=== PATIENT | male | born 1995 | race African-American/Black ===

== ENCOUNTER 2021-08-09 02:41 | Emergency (ER) | payer OTHER, SELFPAY ==
--- NOTE | 2021-08-09 03:13 | ED.ABDPAIN ---
HPI - Abdominal Pain General Chief Complaint: Nausea/Vomiting/Diarrhea Stated Complaint: vomiting x 3 and abd pain Time Seen by Provider: 08/09/21 03:03 Source: patient Mode of arrival: ambulatory Limitations: no limitations History of Present Illness HPI narrative: Patient is a 26-year-old male complaining of epigastric pain, burning, 6 out of 10, nonradiating accompanied by nausea that started 2 hours prior to arrival. Patient denies any chest pain, shortness of breath, vomiting, diarrhea, fever or chills. Related Data Allergies Allergy/AdvReac Type Severity Reaction Status Date / Time No Known Allergies Allergy Verified 08/09/21 02:49 Review of Systems Review of Systems: All systems reviewed & are unremarkable except as noted in HPI and below Constitutional: Constitutional: Denies body ache(s), Denies chills, Denies excessive sweating, Denies fatigue, Denies fever(s), Denies headache(s), Denies lethargy, Denies malaise, Denies weakness and Denies weight loss Eyes: Eyes: Denies blurry vision, Denies change in vision and Denies loss of vision ENT: Denies dizziness, Denies ear discharge, Denies headache(s), Denies lip swelling, Denies epistaxis, Denies nasal congestion, Denies neck pain, Denies throat swelling and Denies tongue swelling Cardiovascular: Cardiovascular: Denies chest pain, Denies chest pain at rest, Denies chest pain with activity, Denies diaphoresis, Denies rapid heart rate, Denies edema, Denies irregular heart rhythm, Denies lightheadedness, Denies palpitations, Denies dyspnea and Denies dyspnea on exertion Respiratory: Respiratory: Denies chest congestion, Denies cough, Denies hemoptysis, Denies dyspnea and Denies dyspnea on exertion Gastrointestinal: Gastrointestinal: Denies melena, Denies hematochezia, Denies diarrhea, Denies vomiting and Denies hematemesis Musculoskeletal: Musculoskeletal: Denies abnormal gait, Denies deformity, Denies joint swelling, Denies limited range of motion, Denies neck pain and Denies numbness Neurologic: Denies Abnormal speech present, Denies abnormal gait, Denies confusion, Denies dizziness, Denies headache(s), Denies focal weakness, Denies loss of vision, Denies numbness, Denies Other visual disturbances, Denies Sensory deficit (Neuro) and Denies weakness Psychiatric: Psychiatric: Denies confusion, Denies depression, Denies auditory hallucinations, Denies homicidal ideation and Denies suicidal ideation Endocrine: Endocrine: Denies cold intolerance, Denies excessive sweating, Denies fatigue, Denies heat intolerance and Denies palpitations Hematologic/Lymphatic: Hematologic/Lymphatic: Denies easy bleeding and Denies easy bruising Allergic/Immunologic: Allergic/Immunologic: Denies lip swelling, Denies throat swelling and Denies tongue swelling PMFSH Comments Past medical history: None Family history: None Social history: Non-smoker no EtOH or drug use Exam Const: General: cooperative, healthy appearing, comfortable, no acute distress, well developed, alert and awake; No confusion Orientation/consciousness: oriented to person, oriented to place, oriented to time, patient oriented x3 and No confusion Limitations: no limitations HENMT: Head: normal to inspection, normocephalic and atraumatic Ears: hearing grossly normal bilaterally, TM normal on the right and TM normal on the left General nose exam: Normal external nose present, Normal nares present and No nasal discharge present Face and sinus: normal facial exam Mouth: Yes Normal oral and palatal mucosa present, Yes lip normal, Yes tongue normal and Yes oropharynx normal Throat: posterior oropharynx normal, tonsils normal and uvula midline Eyes: General: appearance normal, both eyes and all related structures Pupils: Equal, round and reactive pupils present EOM: EOMs intact bilaterally Neck: Neck: normal visual inspection, full ROM, no lymphadenopathy and no meningeal signs Chest: Chest palpation & inspection: normal inspect
[2021-08-09] MEDS: FAMOTIDINE 20 MG TABLET 40 MG PO (03:26)
[2021-08-09] MEDS: BELLADONNA ALK/PHENOB ELIX 10 ML, MAG HYDROX/ALUMINUM HYD/SIMETH 30 ML, LIDOCAINE HCL 2... PO (03:27)
[2021-08-09 03:28] LABS: Basophils Percent Auto 0.5 % (0.2-1.2); Eosinophils Absolute Auto 0.1 K/mm3 (0-0.3); Eosinophils Percent Auto 1.9 % (0-4.4); Hematocrit 41.2 % (42.0-52.0); Immature Granulocyte Absolute 0.02 K/mm3 (0.00-0.031); Immature Granulocyte Percent A 0.3 % (0-0.5); Lymphocytes Percent Auto 42.6 % (18.3-44.2); Mean Corpuscular Hemoglobin 28.2 pg (26-34); Mean Corpuscular Volume 82.9 fl (80-100); Mean Platelet Volume 10.7 fl (7.4-10.4); Monocytes Absolute Auto 0.7 K/mm3 (0.1-0.6); Monocytes Percent Auto 11.6 % (2.6-8.5); Neutrophils Absolute Auto 2.5 K/mm3 (1.3-6.7); Neutrophils Percent Auto 43.1 % (45.5-73.1); Platelet Count Result 238 k/mm3 (150-375); Red Blood Count 4.97 M/mm3 (4.6-6.20); White Blood Count 5.9 K/mm3 (4.5-10.0)
[2021-08-09] MEDS: PROMETHAZINE HCL 25 MG/ML AMPUL 12.5 MG IV PUSH (03:28)
[2021-08-09 03:38] LABS: Alanine Aminotransferase 23 U/L (4-50); Albumin Level 4.3 g/dL (3.5-5.1); Alkaline Phosphatase 73 U/L (38-126); Anion Gap 5 mmol/L (8-16); Aspartate Amino Transferase 31 U/L (17-59); Bilirubin,Total 0.4 mg/dL (0.2-1.3); Blood Urea Nitrogen 13 mg/dL (9-20); Carbon Dioxide 30 mmol/L (22-30); Chloride 103 mmol/L (98-107); Estimated CRCL calculation 115 ml/min; Estimated Glomerular Filt Rate > 60; Glucose 113 mg/dL (65-110); Lipase 79 U/L (23-300); Potassium 3.9 mmol/L (3.4-5.0); Sodium 138 mmol/L (137-145)
[2021-08-09] MEDS: SODIUM CHLORIDE 0.9% IV 1,000 ML 999 ML IV CONT (03:40)
[2021-08-09 04:08] VITALS: BP 128/61; PULSE 77; RESP 14; TEMP 36.5; O2SAT 100
[2021-08-09 04:37] VITALS: BP 124/73; PULSE 65; RESP 12; O2SAT 100
== END 2021-08-09 04:41 | disposition home or self-care (01) ==
PROVIDERS: Emergency Provider Emergency Medicine
DX: K29.00 Acute gastritis without bleeding (principal)
CPT/HCPCS: 36415; 76705; 80053; 83690; 85025; 96361; 96374; 99284; A9270; J2550; J7030

== ENCOUNTER 2021-08-09 11:40 | Emergency (ER) | payer OTHER, SELFPAY ==
--- NOTE | ~2021-08-09 | US_ITS ---
EXAMINATION: US right upper quadrant EXAM DATE: 08/09/2021 13:59 INDICATION: Epigastric pain . TECHNIQUE: Multiple grayscale and Doppler images of the abdomen right upper quadrant were obtained (b y a technologist who performed the scan) and subsequently reviewed. There is no prior study for najma aviles. FINDINGS: The pancreatic head and body are normal in appearance. The pancreatic tail is not visualized. The l iver has normal echogenicity and contour. Echogenic portal triads. There are no focal liver lesions i dentified. There is no evidence of intrahepatic biliary duct dilation. Portal venous flow was seen in the hepatopedal, normal direction and has normal Doppler waveform. No right-sided hydronephrosis . Common bile duct measures 4 mm, which is normal. The gallbladder wall is normal in thickness, with ex pected amount of distention. No sonographic evidence of pericholecystic fluid. There is cholelithia sis. Technologist performing exam reports patient did not demonstrate sonographic Martínez's sign. P marlen note that this sign is less reliable in patients who have received pain medication. IMPRESSION: 1. Unremarkable abdominal ultrasound exam. 2. Cholelithiasis. Reviewed, dictated and finalized at location A. [employer]
[2021-08-09 11:50] VITALS: BP 156/99; PULSE 65; RESP 15; TEMP 36.6; O2SAT 100
[2021-08-09 13:14] VITALS: BP 148/90; PULSE 66; RESP 16; O2SAT 100
--- NOTE | 2021-08-09 14:13 | PC.NURSE ---
PT REFUSED SLN, IVF AND ZOFRAN. PT STATES I DON'T THINK THAT WILL HELP.
--- NOTE | 2021-08-09 14:18 | ED.ABDPAIN ---
HPI - Abdominal Pain General Chief Complaint: Abdominal Pain Stated Complaint: Request Evaulation Again, ABD Pain Time Seen by Provider: 08/09/21 13:12 History of Present Illness HPI narrative: Patient is a 26-year-old male who presents ER with epigastric pain. Pain is burning and radiates up into the back of his throat. Was evaluated earlier in the morning. Lab work was unremarkable. Symptoms improved after some Pepcid and he was discharged home. After returning home patient had recurrence of his discomfort. He has had some nausea and vomiting. No aggravating or alleviating factors. Denies chest pain or chest pressure. No history of gallstones. No imaging was performed previously. He has follow-up scheduled with his primary care physician. Related Data Allergies Allergy/AdvReac Type Severity Reaction Status Date / Time No Known Allergies Allergy Verified 08/09/21 02:49 Review of Systems Review of Systems: All systems reviewed & are unremarkable except as noted in HPI and below Constitutional: Constitutional: Denies chills, Denies fever(s) and Denies weakness Cardiovascular: Cardiovascular: Denies chest pain, Denies rapid heart rate and Denies radiating jaw, neck or arm pain Respiratory: Respiratory: Denies cough and Denies dyspnea Gastrointestinal: Gastrointestinal: Reports abdominal pain, Reports heartburn, Denies diarrhea, Reports nausea and Reports vomiting PMFSH Past Medical History Medical History (Updated 08/09/21 @ 14:22 by Juan Daniel Jerome MD) Healthy adult male Surgical History Surgical History (Updated 08/09/21 @ 14:20 by Juan Daniel Jerome MD) No history of previous surgery Exam Narrative: GENERAL: Well-appearing, well-nourished, and in no acute distress. HEAD: Normocephalic, atraumatic. ENT: Mucous membranes moist. CHEST: Clear to auscultation. No respiratory distress. HEART: Regular rate and rhythm. Normal peripheral pulses. ABDOMEN: Soft, nontender, nondistended. EXTREMITIES: Normal range of motion. No edema. SKIN: Warm, dry, no rash. NEURO: Alert and oriented x3. Course Course Emergency Course: Patient declined IV fluids and Zofran. He was given a GI cocktail. Ultrasound unremarkable. Discharge home with Protonix to substitute for famotidine. Vital Signs Vital signs: Vital Signs Temperature 97.9 F 08/09/21 11:50 Pulse Rate 65 08/09/21 11:50 Respiratory Rate 15 08/09/21 11:50 Blood Pressure 156/99 H 08/09/21 11:50 Pulse Oximetry 100 08/09/21 11:50 Temperature 97.9 F 08/09/21 11:50 Pulse Rate 66 08/09/21 13:14 Respiratory Rate 16 08/09/21 13:14 Blood Pressure 148/90 H 08/09/21 13:14 Pulse Oximetry 100 08/09/21 13:14 MDM - Abdominal Pain Imaging Data Radiologist's impression: ITS Impressions Upper Quadrant Ultrasound 08/09/21 14:00 IMPRESSION: 1. Unremarkable abdominal ultrasound exam. 2. Cholelithiasis. Discharge Plan Discharge Clinical Impression: Acute gastritis Patient Disposition: Home, Self-Care Condition: Stable Instructions: Gastritis (ED), Diet for Stomach Ulcers and Gastritis (ED) Additional Instructions: You may discontinue your Pepcid and start taking Protonix to help with your reflux. You may also take Zofran as needed for nausea. Adhere to a bland diet. Return the ER if you have fever over 100.4 ?F, you have worsening pain, you have additional concerns. Prescriptions: New pantoprazole 20 mg tablet,delayed release (DR/EC) 20 mg PO HS 28 Days Qty: 28 RF: 0 ondansetron 4 mg tablet,disintegrating 4 mg PO Q6H PRN (Reason: nausea and vomiting) Qty: 10 RF: 0 No Action famotidine [Pepcid] 20 mg tablet 20 mg PO BID Qty: 10 RF: 0 Follow-up/Referrals: PHYSICIAN,PATCH MACHINE OPERATOR [Primary Care Provider] - Guillermo Aguilera MD [Physician] - 3 Days
[2021-08-09] MEDS: BELLADONNA ALK/PHENOB ELIX 10 ML, MAG HYDROX/ALUMINUM HYD/SIMETH 30 ML, LIDOCAINE HCL 2... PO (14:23)
[2021-08-09 14:31] VITALS: BP 140/86; PULSE 68; RESP 16; TEMP 36.4; O2SAT 100
--- NOTE | 2021-08-09 14:31 | PC.NURSE ---
gi cocktail given
== END 2021-08-09 14:37 | disposition home or self-care (01) ==
PROVIDERS: Emergency Provider Emergency Medicine
DX: K29.00 Acute gastritis without bleeding (principal); K80.20 Calculus of gallbladder without cholecystitis without obstruction
CPT/HCPCS: 76705; 99284; A9270